=== PATIENT | female | born 1965 | race Caucasian/White ===

== ENCOUNTER → 2021-04-23 | Outpatient (CLI) | payer OTHER ==
[~2021-04-23] MED LIST: ALBUTEROL2.5 MG/31 INH; DOXYCYCLINE 10100 MG PO; NEBULIZER MISCELL; PREDNISONE 10 M10 MG PO; PREDNISONE 5 MG5 M1 PO; PROMETHAZINE/C118 ML PO; TESSALON PERLE100 MG PO; VENTOLIN HFA 1818 GM INH; ZPAK PO
== END ==
LOC: M.CT 14:00
PROVIDERS: ATTEND Nurse Practitioner Family
DX: Z13.6 Encounter for screening for cardiovascular disorders (principal); I25.10 Atherosclerotic heart disease of native coronary artery without angina pectoris